=== PATIENT | female | born 1935 | race African-American/Black ===

== ENCOUNTER 2018-02-12 14:16 | Inpatient (IN) | payer MEDICARE, OTHER ==
[~2018-02-12] VITALS: Ht 157.5 cm; Wt 63.5 kg
[2018-02-12] VITALS (9 sets, daily range): BP systolic 77–127; BP diastolic 35–89
[2018-02-12] MEDS ORDERED: VALS40TA4 PO (14:23)
[2018-02-12] MEDS ORDERED: MEMA5TAB7 PO (14:23)
[2018-02-12] MEDS ORDERED: FURO20TA4 PO (14:23)
[2018-02-12] MEDS ORDERED: SODIUM CHLORIDE 0.9% 1,000 ML IV ONE (15:34)
[2018-02-12 16:27] LABS: INR 1.2; PROTHROMBIN TIME 11.7 sec (9.1-11.1)
[2018-02-12 16:28] LABS: BASOPHILS % 0.8 % (0.0-2.0); EOSINOPHILS % 0.1 % (0.0-5.0); HEMATOCRIT. 23.4 % (36.0-48.0); HEMOGLOBIN. 7.9 g/dL (12.0-16.0); LYMPHOCYTES % 8.2 % (20.0-50.0); MEAN CORPUSCULAR HEMOGLOBIN 33.4 pg (28.0-32.0); MEAN CORPUSCULAR VOLUME 99.1 fL (81.0-99.0); MEAN PLATELET VOLUME 10.3 fl (7.4-10.4); MONOCYTES % 2.6 % (2.0-8.0); NEUTROPHILS % 88.3 % (40.0-76.0); RED BLOOD CELL COUNT 2.36 mill/uL (4.2-5.4); RED CELL DISTRIBUTION WIDTH 21.5 % (11.6-14.6)
[2018-02-12 16:29] LABS: CHLORIDE 108 mEq/L (98-107)
[2018-02-12 16:35] LABS: ETHANOL BLOOD < 10 mg/dL
[2018-02-12 16:44] LABS: PLATELET 26 x1000/uL (130-400)
[2018-02-12] MEDS ORDERED: CALCIUM CHLORIDE 1GM/10ML SYR IV ONE (16:45)
[2018-02-12] MEDS ORDERED: ALBUTEROL (0.083%) 2.5MG/3ML NEB HHN ONE (16:45)
[2018-02-12] MEDS ORDERED: SODIUM BICARBONATE 8.4% 1 MEQ/ML 50ML SYR IV ONE (16:45)
[2018-02-12] MEDS ORDERED: DEXTROSE 50% WATER 50ML SYRINGE IV ONE ×2 (16:45→22:36)
[2018-02-12] MEDS ORDERED: INSULIN REGULAR (HUMULIN R) 300UNITS/3ML IV ONE (16:45)
[2018-02-12] MEDS ORDERED: LORAZEPAM 2MG/ML CPJ ONE (17:56)
[2018-02-12] MEDS ORDERED: LORAZEPAM 2MG/ML CPJ IM ONE (18:00)
[2018-02-12 18:19] LABS: CLARITY URINE CLOUDY (CLEAR); COLOR URINE YELLOW (YELLOW); KETONES URINE TRACE (NEGATIVE); LEUKOCYTE ESTERASE URINE 1+ (NEGATIVE); NITRITE URINE NEGATIVE (NEGATIVE); OCCULT BLOOD URINE 1+ (NEGATIVE); PROTEIN URINE 1+ (NEGATIVE); SPECIFIC GRAVITY URINE 1.017 (1.005-1.030); UROBILINOGEN URINE 0.2 E.U./dL (0.2-1.0)
[2018-02-12 18:36] LABS: *AMPHETAMINES SCREEN URINE NEGATIVE (NEGATIVE); *BARBITURATES SCREEN URINE NEGATIVE (NEGATIVE); *BENZODIAZEPINES SCREEN URINE NEGATIVE (NEGATIVE); *COCAINE SCREEN URINE NEGATIVE (NEGATIVE); METHADONE URINE SCREEN NEGATIVE (NEGATIVE); OPIATES URINE SCREEN NEGATIVE (NEGATIVE)
[2018-02-12 18:37] LABS: CANNABINOID URINE SCREEN NEGATIVE (NEGATIVE); PHENCYCLIDINE URINE SCREEN NEGATIVE (NEGATIVE)
[2018-02-12] MEDS ORDERED: PIPERACILLIN/TAZ 3.375G PREMIX 50 ML IV ONE (19:00)
[2018-02-12] MEDS ORDERED: VANCOMYCIN 1 G PREMIX 200 ML IV ONE (19:00)
[2018-02-12] MEDS: DEXTROSE 50% WATER 50ML SYRINGE IV PRN (22:37)
[2018-02-12] MEDS ORDERED: ONDANSETRON HCL 4MG/2ML INJ IV PRN (23:00)
[2018-02-12] MEDS ORDERED: PIPERACILLIN/TAZ 3.375G PREMIX 50 ML IV SCH (23:00)
[2018-02-13] VITALS (107 sets, daily range): BP systolic 59–170; BP diastolic 28–110
[2018-02-13] MEDS ORDERED: DEXTROSE 10% WATER 1,000 ML IV SCH
[2018-02-13] MEDS: DOPAMINE 400MG/250ML PREMIX 250 ML IV PRN ×2 (00:49→14:31)
[2018-02-13] MEDS ORDERED: DEXTROSE 50% WATER 50ML SYRINGE IV PRN (01:15)
[2018-02-13] MEDS: BLOOD SUGAR DIAGNOSTIC STRIP TEST SCH ×8 (01:52→20:00)
[2018-02-13] MEDS ORDERED: VALS160T2 MT (03:09)
[2018-02-13] MEDS ORDERED: OMEP20CA10 MT (03:10)
[2018-02-13] MEDS ORDERED: RIVA1PAT9 TP (03:11)
[2018-02-13] MEDS ORDERED: POTA-79 MT (03:12)
[2018-02-13] MEDS ORDERED: FURO40TA5 MT (03:12)
[2018-02-13] MEDS ORDERED: MEMA10TA2 MT (03:13)
[2018-02-13] MEDS ORDERED: FERR325T6 MT (03:14)
[2018-02-13] MEDS ORDERED: FOLI-43 MT (03:14)
[2018-02-13] MEDS ORDERED: CHOL100053 PO (03:16)
[2018-02-13] MEDS ORDERED: MULT-1146 MT (03:16)
[2018-02-13] MEDS ORDERED: QUET50TA MT (03:17)
[2018-02-13] MEDS ORDERED: POLY17PO3 MT (03:17)
[2018-02-13] MEDS ORDERED: HYDR-3782 MT (03:17)
[2018-02-13] MEDS: PIPERACILLIN/TAZ 2.25G PREMIX 50 ML IV SCH ×4 (05:06→23:12)
[2018-02-13 06:57] LABS: BASOPHILS % 0.2 % (0.0-2.0); EOSINOPHILS % 0.1 % (0.0-5.0); HEMATOCRIT. 22.9 % (36.0-48.0); LYMPHOCYTES % 7.9 % (20.0-50.0); MEAN CORPUSCULAR HEMOGLOBIN 34.1 pg (28.0-32.0); MEAN PLATELET VOLUME 10.1 fl (7.4-10.4); MONOCYTES % 2.6 % (2.0-8.0); NEUTROPHILS % 89.2 % (40.0-76.0); RED BLOOD CELL COUNT 2.33 mill/uL (4.2-5.4); RED CELL DISTRIBUTION WIDTH 21.1 % (11.6-14.6)
[2018-02-13 07:28] LABS: PHOSPHORUS 2.2 mg/dL (2.5-4.9)
[2018-02-13] MEDS ORDERED: LIDOCAINE HCL 1% 20ML VIAL (Pyxis) INJ ONE (07:44)
[2018-02-13] MEDS ORDERED: BLOOD SUGAR DIAGNOSTIC STRIP TEST SCH (07:50)
[2018-02-13 07:59] LABS: PLATELET 34 x1000/uL (130-400)
[2018-02-13] MEDS: PANTOPRAZOLE SODIUM 40 MG/VIAL IV SCH (08:29)
[2018-02-13] MEDS ORDERED: POTASSIUM-SODIUM PHOSPHATE POWDER PACKET PO NR (10:45)
[2018-02-13 11:18] LABS: BG BASE EXCESS -5.8 mmol/L (-2.0-2.0); BG CARBOXYHEMOGLOBIN 0.3 % (0.5-1.5); BG DEOXYHEMOGLOBIN 0.9 % (0.0-5.0); BG FRACTION INSPIRED OXYGEN 28; BG HCO3 ACT 17.9 mmol/L (22.0-26.0); BG METHEMOGLOBIN 0.2 % (0.0-1.5); BG OXYGEN SATURATION 99.1 % (92.0-98.5); BG OXYHEMOGLOBIN 98.6 % (94.0-97.0); BG PCO2 28.3 mmHg (35.0-45.0); BG PH 7.419 (7.350-7.450); BG PO2 165.2 mmHg (75.0-100.0); BG SAMPLE SITE RIGHT BRACHIAL; BG TOTAL HEMOGLOBIN 7.7 g/dL (12.0-18.0); BG VENT MODE NASAL CANNULA
[2018-02-13 12:46] LABS: VITAMIN B12 SERUM > 2000.0 pg/mL (211-911)
[2018-02-13] MEDS: VANCOMYCIN 750 MG PREMIX 150 ML IV SCH (14:31)
[2018-02-13] MEDS ORDERED: DEXT 10% WATER 1,000 ML IV SCH (14:45)
[2018-02-13] MEDS: DEXT 10% WATER 1,000 ML IV SCH (15:00)
[2018-02-13 15:30] LABS: HEPATITIS B SURFACE ANTIGEN NEGATIVE
[2018-02-13 16:00] LABS: HEPATITIS A AB IGM NEGATIVE (NEGATIVE)
[2018-02-14] VITALS (95 sets, daily range): BP systolic 60–162; BP diastolic 34–98
[2018-02-14] MEDS: DEXT 10% WATER 1,000 ML IV SCH (00:37)
[2018-02-14] MEDS: BLOOD SUGAR DIAGNOSTIC STRIP TEST SCH ×7 (04:00→23:58)
[2018-02-14] MEDS: DOPAMINE 400MG/250ML PREMIX 250 ML IV PRN ×3 (04:49→22:43)
[2018-02-14] MEDS: PIPERACILLIN/TAZ 2.25G PREMIX 50 ML IV SCH ×4 (05:49→23:04)
[2018-02-14 07:04] LABS: BASOPHILS % 0.7 % (0.0-2.0); EOSINOPHILS % 0.6 % (0.0-5.0); HEMATOCRIT. 21.7 % (36.0-48.0); HEMOGLOBIN. 7.4 g/dL (12.0-16.0); LYMPHOCYTES % 15.6 % (20.0-50.0); MEAN CORPUSCULAR HEMOGLOBIN 33.6 pg (28.0-32.0); MEAN CORPUSCULAR VOLUME 97.7 fL (81.0-99.0); MEAN PLATELET VOLUME 9.5 fl (7.4-10.4); MONOCYTES % 6.8 % (2.0-8.0); NEUTROPHILS % 76.3 % (40.0-76.0); RED BLOOD CELL COUNT 2.22 mill/uL (4.2-5.4)
[2018-02-14 07:56] LABS: PLATELET 35 x1000/uL (130-400)
[2018-02-14] MEDS: PANTOPRAZOLE SODIUM 40 MG/VIAL IV SCH (08:09)
[2018-02-14 13:01] LABS: FOLIC ACID (FOLATE) SERUM >20 ng/mL ng/mL (>5.38)
[2018-02-14 13:39] LABS: TOTAL IRON BINDING CAPACITY 224 ug/dL (250-450)
[2018-02-14] MEDS: VANCOMYCIN 750 MG PREMIX 150 ML IV SCH (14:08)
[2018-02-14 14:35] LABS: FERRITIN 1686 ng/mL (10-291)
[2018-02-15] VITALS (88 sets, daily range): BP systolic 56–170; BP diastolic 28–112
[2018-02-15] MEDS: BLOOD SUGAR DIAGNOSTIC STRIP TEST SCH ×5 (04:00→20:00)
[2018-02-15] MEDS: DEXTROSE 50% WATER 50ML SYRINGE IV PRN (04:13)
[2018-02-15] MEDS: PIPERACILLIN/TAZ 2.25G PREMIX 50 ML IV SCH ×3 (05:37→17:13)
[2018-02-15 06:12] LABS: BASOPHILS % 0.6 % (0.0-2.0); EOSINOPHILS % 1.1 % (0.0-5.0); HEMOGLOBIN. 7.1 g/dL (12.0-16.0); LYMPHOCYTES % 11.1 % (20.0-50.0); MEAN CORPUSCULAR VOLUME 98.3 fL (81.0-99.0); MEAN PLATELET VOLUME 9.8 fl (7.4-10.4); MONOCYTES % 6.4 % (2.0-8.0); NEUTROPHILS % 80.8 % (40.0-76.0); RED BLOOD CELL COUNT 2.09 mill/uL (4.2-5.4); RED CELL DISTRIBUTION WIDTH 20.6 % (11.6-14.6)
[2018-02-15 06:24] LABS: CHLORIDE 107 mEq/L (98-107)
[2018-02-15 06:47] LABS: HEMATOCRIT. 20.5 % (36.0-48.0)
[2018-02-15] MEDS: PANTOPRAZOLE SODIUM 40 MG/VIAL IV SCH (08:41)
[2018-02-15 10:01] LABS: PLATELET 33 x1000/uL (130-400)
[2018-02-15 10:02] LABS: PLATELET ESTIMATE MARKEDLY DECREASED
[2018-02-15] MEDS: MIDODRINE HCL 5MG TABLET PO SCH ×2 (11:35→21:00)
[2018-02-15] MEDS ORDERED: SODIUM CHLORIDE 0.45% 1,000 ML IV SCH (14:15)
[2018-02-15] MEDS ORDERED: IOHEXOL-300 100 ML BOTTLE ONE ×2 (15:41→20:41)
[2018-02-15] MEDS ORDERED: LEVETIRACETAM 500 MG in SODIUM CHLORIDE 0.9% 100 ML IV SCH (16:00)
[2018-02-15] MEDS: METHYLPREDNISOLONE SOD SUCC 40 MG/ML VIAL IV SCH ×2 (16:05→21:00)
[2018-02-15] MEDS: DOPAMINE 400MG/250ML PREMIX 250 ML IV PRN (16:05)
[2018-02-15] MEDS: VANCOMYCIN 750 MG PREMIX 150 ML IV SCH (16:05)
[2018-02-15] MEDS: DOCUSATE SODIUM SUGAR FREE 100MG/10ML UDC NG SCH (16:07)
[2018-02-15] MEDS: DEXT 10% WATER 1,000 ML IV SCH (17:13)
[2018-02-15] MEDS: LEVETIRACETAM 500 MG in SODIUM CHLORIDE 0.9% 100 ML IV SCH (18:24)
[2018-02-15 18:56] LABS: D-DIMER 0.33 mg/L FEU (<0.50); INR 1.1; PARTIAL THROMBOPLASTIN TIME 28.5 sec (23.4-31.0); PROTHROMBIN TIME 11.2 sec (9.1-11.1)
[2018-02-15 19:10] LABS: T4 FREE 0.8 ng/dL (0.76-1.46)
[2018-02-16] VITALS (82 sets, daily range): BP systolic 93–196; BP diastolic 34–151
[2018-02-16] MEDS: PIPERACILLIN/TAZ 2.25G PREMIX 50 ML IV SCH ×5 (00:58→23:38)
[2018-02-16] MEDS: BLOOD SUGAR DIAGNOSTIC STRIP TEST SCH ×7 (00:59→23:44)
[2018-02-16] MEDS: METHYLPREDNISOLONE SOD SUCC 40 MG/ML VIAL IV SCH ×3 (05:46→21:26)
[2018-02-16] MEDS: DEXT 10% WATER 1,000 ML IV SCH (05:47)
[2018-02-16] MEDS: MIDODRINE HCL 5MG TABLET PO SCH ×3 (06:00→21:26)
[2018-02-16 06:52] LABS: CHLORIDE 102 mEq/L (98-107)
[2018-02-16 07:10] LABS: HEMATOCRIT 30.2 % (36.0-48.0); HEMOGLOBIN 10.5 g/dL (12.0-16.0); MEAN CORPUSCULAR HEMOGLOBIN 33.1 pg (28.0-32.0); RED BLOOD CELL COUNT 3.17 mill/uL (4.2-5.4); RED CELL DISTRIBUTION WIDTH 19.7 % (11.6-14.6)
[2018-02-16 07:14] LABS: HAPTOGLOBIN <31.0 mg/dL (30-200)
[2018-02-16 07:22] LABS: PLATELET 42 x1000/uL (130-400)
[2018-02-16] MEDS: DOCUSATE SODIUM SUGAR FREE 100MG/10ML UDC NG SCH ×2 (09:54→18:15)
[2018-02-16] MEDS: LEVETIRACETAM 500 MG in SODIUM CHLORIDE 0.9% 100 ML IV SCH ×2 (09:55→21:26)
[2018-02-16] MEDS: PANTOPRAZOLE SODIUM 40 MG/VIAL IV SCH (09:55)
[2018-02-16] MEDS: DOPAMINE 400MG/250ML PREMIX 250 ML IV PRN (15:05)
[2018-02-16] MEDS: LEVOTHYROXINE SODIUM 25MCG TABLET PO SCH (15:06)
[2018-02-16] MEDS: VANCOMYCIN 750 MG PREMIX 150 ML IV SCH (15:06)
[2018-02-17] VITALS (86 sets, daily range): BP systolic 123–179; BP diastolic 37–121
[2018-02-17] MEDS: BLOOD SUGAR DIAGNOSTIC STRIP TEST SCH ×5 (04:00→20:14)
[2018-02-17 04:13] LABS: HIV SCREEN 4G Non Reactive (Non Reactive)
[2018-02-17] MEDS: PIPERACILLIN/TAZ 2.25G PREMIX 50 ML IV SCH ×3 (05:50→18:38)
[2018-02-17] MEDS: METHYLPREDNISOLONE SOD SUCC 40 MG/ML VIAL IV SCH ×3 (05:50→21:43)
[2018-02-17 06:09] LABS: HEMATOCRIT 29.1 % (36.0-48.0); HEMOGLOBIN 10.1 g/dL (12.0-16.0); MEAN CORPUSCULAR HEMOGLOBIN 32.5 pg (28.0-32.0); MEAN CORPUSCULAR VOLUME 94.2 fL (81.0-99.0); PLATELET 59 x1000/uL (130-400); RED CELL DISTRIBUTION WIDTH 20.1 % (11.6-14.6)
[2018-02-17 06:14] LABS: CHLORIDE 107 mEq/L (98-107)
[2018-02-17 07:18] LABS: IMMUNOGLOBULIN A 452 mg/dL (64-422); IMMUNOGLOBULIN G 991 mg/dL (700-1600); IMMUNOGLOBULIN M 110 mg/dL (26-217)
[2018-02-17] MEDS: MIDODRINE HCL 5MG TABLET PO SCH ×3 (08:30→21:43)
[2018-02-17] MEDS: LEVETIRACETAM 500 MG in SODIUM CHLORIDE 0.9% 100 ML IV SCH ×2 (09:35→21:43)
[2018-02-17] MEDS: PANTOPRAZOLE SODIUM 40 MG/VIAL IV SCH (09:35)
[2018-02-17] MEDS: LEVOTHYROXINE SODIUM 25MCG TABLET PO SCH (09:35)
[2018-02-17] MEDS: DOPAMINE 400MG/250ML PREMIX 250 ML IV PRN (09:35)
[2018-02-17] MEDS: DOCUSATE SODIUM SUGAR FREE 100MG/10ML UDC NG SCH ×2 (09:36→18:38)
[2018-02-17] MEDS ORDERED: LORAZEPAM 2MG/ML CPJ IV ONE (12:00)
[2018-02-17] MEDS ORDERED: LIDOCAINE HCL/PF 1% 2ML VIAL INFIL ONE (12:00)
[2018-02-17] MEDS ORDERED: LIDOCAINE HCL/PF 1% 10 MG/ML 5ML VIAL IJ ONE (12:10)
[2018-02-17] MEDS: VANCOMYCIN 750 MG PREMIX 150 ML IV SCH (17:14)
[2018-02-18] VITALS (94 sets, daily range): BP systolic 101–182; BP diastolic 57–103
[2018-02-18] MEDS: PIPERACILLIN/TAZ 2.25G PREMIX 50 ML IV SCH ×5 (00:31→23:36)
[2018-02-18] MEDS: BLOOD SUGAR DIAGNOSTIC STRIP TEST SCH ×7 (00:31→23:36)
[2018-02-18 05:03] LABS: HEMATOCRIT 27.2 % (36.0-48.0); HEMOGLOBIN 9.3 g/dL (12.0-16.0); MEAN CORPUSCULAR HEMOGLOBIN 32.5 pg (28.0-32.0); MEAN CORPUSCULAR VOLUME 95.8 fL (81.0-99.0); PLATELET 80 x1000/uL (130-400); RED BLOOD CELL COUNT 2.84 mill/uL (4.2-5.4)
[2018-02-18] MEDS: METHYLPREDNISOLONE SOD SUCC 40 MG/ML VIAL IV SCH ×3 (05:06→21:30)
[2018-02-18] MEDS: MIDODRINE HCL 5MG TABLET PO SCH ×3 (05:06→21:30)
[2018-02-18 05:09] LABS: CHLORIDE 107 mEq/L (98-107)
[2018-02-18] MEDS: DOCUSATE SODIUM SUGAR FREE 100MG/10ML UDC NG SCH ×2 (09:14→17:00)
[2018-02-18] MEDS: LEVETIRACETAM 500 MG in SODIUM CHLORIDE 0.9% 100 ML IV SCH ×2 (09:14→21:30)
[2018-02-18] MEDS: PANTOPRAZOLE SODIUM 40 MG/VIAL IV SCH (09:14)
[2018-02-18] MEDS: LEVOTHYROXINE SODIUM 25MCG TABLET PO SCH (09:15)
[2018-02-19] VITALS (36 sets, daily range): BP systolic 127–169; BP diastolic 61–97
[2018-02-19] MEDS: BLOOD SUGAR DIAGNOSTIC STRIP TEST SCH ×4 (04:00→16:54)
[2018-02-19 04:46] LABS: HEMOGLOBIN 9.7 g/dL (12.0-16.0); MEAN CORPUSCULAR VOLUME 95.1 fL (81.0-99.0); PLATELET 101 x1000/uL (130-400); RED BLOOD CELL COUNT 2.95 mill/uL (4.2-5.4); RED CELL DISTRIBUTION WIDTH 19.7 % (11.6-14.6)
[2018-02-19 04:53] LABS: CHLORIDE 106 mEq/L (98-107)
[2018-02-19] MEDS: MIDODRINE HCL 5MG TABLET PO SCH ×3 (05:12→23:03)
[2018-02-19] MEDS: METHYLPREDNISOLONE SOD SUCC 40 MG/ML VIAL IV SCH ×2 (05:12→13:56)
[2018-02-19] MEDS: PIPERACILLIN/TAZ 2.25G PREMIX 50 ML IV SCH ×3 (05:12→17:18)
[2018-02-19] MEDS: DOPAMINE 400MG/250ML PREMIX 250 ML IV PRN ×2 (06:46→17:28)
[2018-02-19] MEDS: LEVOTHYROXINE SODIUM 25MCG TABLET PO SCH (09:09)
[2018-02-19] MEDS: DOCUSATE SODIUM SUGAR FREE 100MG/10ML UDC NG SCH ×2 (09:09→17:18)
[2018-02-19] MEDS: PANTOPRAZOLE SODIUM 40 MG/VIAL IV SCH (09:10)
[2018-02-19] MEDS: LEVETIRACETAM 500 MG in SODIUM CHLORIDE 0.9% 100 ML IV SCH ×2 (11:32→23:01)
[2018-02-19] MEDS ORDERED: POTASSIUM CHLORIDE 20MEQ/PACKET PO SCH (12:30)
[2018-02-20] VITALS (64 sets, daily range): BP systolic 104–172; BP diastolic 59–120
[2018-02-20] MEDS: BLOOD SUGAR DIAGNOSTIC STRIP TEST SCH ×4 (00:36→17:31)
[2018-02-20] MEDS: PIPERACILLIN/TAZ 2.25G PREMIX 50 ML IV SCH ×2 (00:38→07:00)
[2018-02-20 05:47] LABS: HEMOGLOBIN 8.2 g/dL (12.0-16.0); MEAN CORPUSCULAR HEMOGLOBIN 33.2 pg (28.0-32.0); MEAN CORPUSCULAR VOLUME 96.8 fL (81.0-99.0); PLATELET 97 x1000/uL (130-400); RED BLOOD CELL COUNT 2.48 mill/uL (4.2-5.4); RED CELL DISTRIBUTION WIDTH 20.2 % (11.6-14.6)
[2018-02-20 06:14] LABS: CHLORIDE 106 mEq/L (98-107)
[2018-02-20] MEDS: LEVOTHYROXINE SODIUM 25MCG TABLET PO SCH (06:56)
[2018-02-20] MEDS: MIDODRINE HCL 5MG TABLET PO SCH ×3 (06:56→21:10)
[2018-02-20] MEDS: DOPAMINE 400MG/250ML PREMIX 250 ML IV PRN (07:01)
[2018-02-20] MEDS: DOCUSATE SODIUM SUGAR FREE 100MG/10ML UDC NG SCH ×2 (09:00→17:00)
[2018-02-20] MEDS: METHYLPREDNISOLONE SOD SUCC 40 MG/ML VIAL IV SCH ×2 (09:05→17:31)
[2018-02-20] MEDS: LEVETIRACETAM 500 MG in SODIUM CHLORIDE 0.9% 100 ML IV SCH ×2 (09:06→21:09)
[2018-02-20] MEDS: PANTOPRAZOLE SODIUM 40 MG/VIAL IV SCH (09:06)
[2018-02-20] MEDS ORDERED: POTASSIUM CHLORIDE 20MEQ/PACKET PO SCH (10:45)
[2018-02-20] MEDS: DOPAMINE 400MG/250ML PREMIX 250 ML IV SCH ×2 (22:15→22:58)
[2018-02-21] VITALS (12 sets, daily range): BP systolic 134–159; BP diastolic 64–89
[2018-02-21] MEDS: BLOOD SUGAR DIAGNOSTIC STRIP TEST SCH ×4 (00:49→16:45)
[2018-02-21] MEDS: MIDODRINE HCL 5MG TABLET PO SCH ×3 (06:00→21:53)
[2018-02-21] MEDS: LEVOTHYROXINE SODIUM 25MCG TABLET PO SCH (06:20)
[2018-02-21 06:44] LABS: HEMATOCRIT 24.5 % (36.0-48.0); HEMOGLOBIN 8.4 g/dL (12.0-16.0); MEAN CORPUSCULAR HEMOGLOBIN 33.2 pg (28.0-32.0); MEAN CORPUSCULAR VOLUME 96.3 fL (81.0-99.0); PLATELET 119 x1000/uL (130-400); RED BLOOD CELL COUNT 2.54 mill/uL (4.2-5.4); RED CELL DISTRIBUTION WIDTH 19.8 % (11.6-14.6)
[2018-02-21 07:32] LABS: CHLORIDE 105 mEq/L (98-107)
[2018-02-21] MEDS: LEVETIRACETAM 500 MG in SODIUM CHLORIDE 0.9% 100 ML IV SCH ×2 (09:05→20:58)
[2018-02-21] MEDS: DOCUSATE SODIUM SUGAR FREE 100MG/10ML UDC NG SCH ×2 (09:05→16:48)
[2018-02-21] MEDS: METHYLPREDNISOLONE SOD SUCC 40 MG/ML VIAL IV SCH ×2 (09:05→16:48)
[2018-02-21] MEDS: PANTOPRAZOLE SODIUM 40 MG/VIAL IV SCH (09:05)
[2018-02-21] MEDS: DEXTROSE 50% WATER 50ML SYRINGE IV PRN (13:09)
[2018-02-21] MEDS: DEXT 5%/0.45% NACL 1000ML 1,000 ML IV SCH (14:30)
[2018-02-21] MEDS: DOPAMINE 400MG/250ML PREMIX 250 ML IV SCH (18:43)
[2018-02-22] VITALS (11 sets, daily range): BP systolic 106–154; BP diastolic 56–93
[2018-02-22] MEDS: BLOOD SUGAR DIAGNOSTIC STRIP TEST SCH ×4 (00:37→18:00)
[2018-02-22] MEDS: BACITRACIN 15GM TUBE TOP SCH (04:23)
[2018-02-22] MEDS: DEXT 5%/0.45% NACL 1000ML 1,000 ML IV SCH ×2 (04:24→16:57)
[2018-02-22] MEDS: MIDODRINE HCL 5MG TABLET PO SCH ×4 (06:00→21:02)
[2018-02-22 06:49] LABS: BASOPHILS % 0.4 % (0.0-2.0); EOSINOPHILS % 1.1 % (0.0-5.0); HEMATOCRIT. 25.8 % (36.0-48.0); HEMOGLOBIN. 8.9 g/dL (12.0-16.0); MEAN CORPUSCULAR HEMOGLOBIN 33.3 pg (28.0-32.0); MEAN CORPUSCULAR VOLUME 96.6 fL (81.0-99.0); MEAN PLATELET VOLUME 9.3 fl (7.4-10.4); MONOCYTES % 7.1 % (2.0-8.0); NEUTROPHILS % 78.4 % (40.0-76.0); PLATELET 139 x1000/uL (130-400); RED BLOOD CELL COUNT 2.67 mill/uL (4.2-5.4)
[2018-02-22] MEDS: LEVOTHYROXINE SODIUM 25MCG TABLET PO SCH (06:49)
[2018-02-22 07:11] LABS: CHLORIDE 105 mEq/L (98-107)
[2018-02-22] MEDS: PANTOPRAZOLE SODIUM 40 MG/VIAL IV SCH (08:26)
[2018-02-22] MEDS: METHYLPREDNISOLONE SOD SUCC 40 MG/ML VIAL IV SCH ×2 (08:26→16:46)
[2018-02-22] MEDS: DOCUSATE SODIUM SUGAR FREE 100MG/10ML UDC NG SCH ×2 (08:28→16:46)
[2018-02-22] MEDS: LEVETIRACETAM 500 MG in SODIUM CHLORIDE 0.9% 100 ML IV SCH ×2 (08:42→21:02)
[2018-02-22] MEDS ORDERED: METOCLOPRAMIDE HCL 10MG/2ML VIAL ONE (14:21)
[2018-02-22] MEDS ORDERED: METOCLOPRAMIDE HCL 5MG TABLET PO PRN (14:30)
[2018-02-22] MEDS: METOCLOPRAMIDE HCL 10MG/2ML VIAL IV PRN (14:44)
[2018-02-22] MEDS ORDERED: METOCLOPRAMIDE HCL 10MG/2ML VIAL IV SCH (18:00)
[2018-02-22] MEDS: THEOPHYLLINE ANHYDROUS 80 MG/15 ML 120ML PO SCH (18:14)
[2018-02-23] VITALS (12 sets, daily range): BP systolic 93–152; BP diastolic 60–97
[2018-02-23] MEDS: BLOOD SUGAR DIAGNOSTIC STRIP TEST SCH ×4 (00:19→17:18)
[2018-02-23] MEDS: DOPAMINE 400MG/250ML PREMIX 250 ML IV SCH (00:21)
[2018-02-23] MEDS: THEOPHYLLINE ANHYDROUS 80 MG/15 ML 120ML PO SCH ×4 (00:22→17:18)
[2018-02-23] MEDS: MIDODRINE HCL 5MG TABLET PO SCH ×3 (05:54→22:00)
[2018-02-23] MEDS: DEXT 5%/0.45% NACL 1000ML 1,000 ML IV SCH ×2 (05:55→16:30)
[2018-02-23] MEDS: LEVOTHYROXINE SODIUM 25MCG TABLET PO SCH (05:55)
[2018-02-23] MEDS: PANTOPRAZOLE SODIUM 40 MG/VIAL IV SCH (08:23)
[2018-02-23] MEDS: DOCUSATE SODIUM SUGAR FREE 100MG/10ML UDC NG SCH ×2 (08:23→16:30)
[2018-02-23] MEDS: BACITRACIN 15GM TUBE TOP SCH (08:23)
[2018-02-23] MEDS: METHYLPREDNISOLONE SOD SUCC 40 MG/ML VIAL IV SCH ×2 (08:23→16:30)
[2018-02-23] MEDS: LEVETIRACETAM 500 MG in SODIUM CHLORIDE 0.9% 100 ML IV SCH ×2 (08:39→21:22)
[2018-02-24] VITALS (12 sets, daily range): BP systolic 103–158; BP diastolic 57–89
[2018-02-24] MEDS: BLOOD SUGAR DIAGNOSTIC STRIP TEST SCH ×5 (00:30→23:30)
[2018-02-24] MEDS: THEOPHYLLINE ANHYDROUS 80 MG/15 ML 120ML PO SCH ×5 (01:45→23:29)
[2018-02-24] MEDS: DEXT 5%/0.45% NACL 1000ML 1,000 ML IV SCH ×3 (05:00→18:49)
[2018-02-24] MEDS: MIDODRINE HCL 5MG TABLET PO SCH ×3 (06:17→21:31)
[2018-02-24] MEDS: LEVOTHYROXINE SODIUM 25MCG TABLET PO SCH (06:17)
[2018-02-24] MEDS: DOPAMINE 400MG/250ML PREMIX 250 ML IV SCH ×2 (06:27→22:15)
[2018-02-24] MEDS: METHYLPREDNISOLONE SOD SUCC 40 MG/ML VIAL IV SCH (08:28)
[2018-02-24] MEDS: DOCUSATE SODIUM SUGAR FREE 100MG/10ML UDC NG SCH ×2 (08:28→17:05)
[2018-02-24] MEDS: PANTOPRAZOLE SODIUM 40 MG/VIAL IV SCH (08:28)
[2018-02-24] MEDS: LEVETIRACETAM 500 MG in SODIUM CHLORIDE 0.9% 100 ML IV SCH ×2 (08:29→21:30)
[2018-02-24] MEDS: BACITRACIN 15GM TUBE TOP SCH (09:24)
[2018-02-24] MEDS ORDERED: LACTULOSE 20G/30ML UDC PO PRN (17:45)
[2018-02-24] MEDS: LACTULOSE 20G/30ML UDC PO NR ×2 (18:09→21:30)
[2018-02-25] VITALS (19 sets, daily range): BP systolic 90–140; BP diastolic 43–88
[2018-02-25] MEDS: LEVOTHYROXINE SODIUM 25MCG TABLET PO SCH (06:12)
[2018-02-25] MEDS: MIDODRINE HCL 5MG TABLET PO SCH ×3 (06:12→21:19)
[2018-02-25] MEDS: THEOPHYLLINE ANHYDROUS 80 MG/15 ML 120ML PO SCH ×4 (06:17→23:54)
[2018-02-25] MEDS: BLOOD SUGAR DIAGNOSTIC STRIP TEST SCH ×4 (06:17→23:54)
[2018-02-25 07:37] LABS: MEAN CORPUSCULAR HEMOGLOBIN 33.7 pg (28.0-32.0); MEAN CORPUSCULAR VOLUME 99.5 fL (81.0-99.0); PLATELET 200 x1000/uL (130-400); RED BLOOD CELL COUNT 2.06 mill/uL (4.2-5.4); RED CELL DISTRIBUTION WIDTH 21.4 % (11.6-14.6)
[2018-02-25 07:39] LABS: CHLORIDE 106 mEq/L (98-107)
[2018-02-25 07:56] LABS: HEMATOCRIT 20.5 % (36.0-48.0); HEMOGLOBIN 6.9 g/dL (12.0-16.0)
[2018-02-25] MEDS: DOCUSATE SODIUM SUGAR FREE 100MG/10ML UDC NG SCH ×2 (09:41→17:26)
[2018-02-25] MEDS: PANTOPRAZOLE SODIUM 40 MG/VIAL IV SCH (09:42)
[2018-02-25] MEDS: LEVETIRACETAM 500 MG in SODIUM CHLORIDE 0.9% 100 ML IV SCH ×2 (09:42→21:19)
[2018-02-25] MEDS: BACITRACIN 15GM TUBE TOP SCH (09:42)
[2018-02-25] MEDS: METHYLPREDNISOLONE SOD SUCC 40 MG/ML VIAL IV SCH (09:42)
[2018-02-25] MEDS ORDERED: POTASSIUM CHLORIDE 20MEQ TABLET SR PO SCH ×2 (10:00→14:00)
[2018-02-25] MEDS: METOCLOPRAMIDE HCL 10MG/2ML VIAL IV PRN (11:04)
[2018-02-25] MEDS: DEXT 5%/0.45% NACL 1000ML 1,000 ML IV SCH (19:52)
[2018-02-25] MEDS: DOPAMINE 400MG/250ML PREMIX 250 ML IV SCH (21:20)
[2018-02-25] MEDS: ACETAMINOPHEN 650MG/20.3ML UDC NG PRN (22:02)
[2018-02-26] VITALS (13 sets, daily range): BP systolic 100–148; BP diastolic 59–90
[2018-02-26] MEDS: LEVOTHYROXINE SODIUM 25MCG TABLET PO SCH (06:12)
[2018-02-26] MEDS: MIDODRINE HCL 5MG TABLET PO SCH ×3 (06:13→21:04)
[2018-02-26] MEDS: BLOOD SUGAR DIAGNOSTIC STRIP TEST SCH ×4 (06:15→23:48)
[2018-02-26] MEDS: THEOPHYLLINE ANHYDROUS 80 MG/15 ML 120ML PO SCH ×4 (06:15→23:48)
[2018-02-26 07:10] LABS: EOSINOPHILS % 0.5 % (0.0-5.0); HEMATOCRIT. 28.3 % (36.0-48.0); HEMOGLOBIN. 9.8 g/dL (12.0-16.0); LYMPHOCYTES % 7.2 % (20.0-50.0); MEAN CORPUSCULAR HEMOGLOBIN 32.5 pg (28.0-32.0); MEAN CORPUSCULAR VOLUME 93.4 fL (81.0-99.0); MEAN PLATELET VOLUME 9.9 fl (7.4-10.4); NEUTROPHILS % 86.3 % (40.0-76.0); PLATELET 188 x1000/uL (130-400); RED BLOOD CELL COUNT 3.03 mill/uL (4.2-5.4); RED CELL DISTRIBUTION WIDTH 20.3 % (11.6-14.6)
[2018-02-26 07:12] LABS: CHLORIDE 106 mEq/L (98-107)
[2018-02-26] MEDS: DOCUSATE SODIUM SUGAR FREE 100MG/10ML UDC NG SCH ×2 (09:25→17:19)
[2018-02-26] MEDS: LEVETIRACETAM 500 MG in SODIUM CHLORIDE 0.9% 100 ML IV SCH ×2 (09:26→20:54)
[2018-02-26] MEDS: PANTOPRAZOLE SODIUM 40 MG/VIAL IV SCH (09:26)
[2018-02-26] MEDS: BACITRACIN 15GM TUBE TOP SCH (09:26)
[2018-02-26] MEDS: METHYLPREDNISOLONE SOD SUCC 40 MG/ML VIAL IV SCH (09:26)
[2018-02-26] MEDS ORDERED: POTASSIUM CHLORIDE 20MEQ TABLET SR PO NR (17:10)
[2018-02-26] MEDS: DEXT 5%/0.45% NACL 1000ML 1,000 ML IV SCH (20:54)
[2018-02-26] MEDS: DOPAMINE 400MG/250ML PREMIX 250 ML IV SCH (21:20)
[2018-02-27] VITALS (12 sets, daily range): BP systolic 106–148; BP diastolic 55–87
[2018-02-27] MEDS: METOCLOPRAMIDE HCL 10MG/2ML VIAL IV PRN (00:49)
[2018-02-27] MEDS: MIDODRINE HCL 5MG TABLET PO SCH ×3 (05:07→21:30)
[2018-02-27] MEDS: LEVOTHYROXINE SODIUM 25MCG TABLET PO SCH (05:07)
[2018-02-27] MEDS: BLOOD SUGAR DIAGNOSTIC STRIP TEST SCH ×3 (05:08→17:48)
[2018-02-27] MEDS: THEOPHYLLINE ANHYDROUS 80 MG/15 ML 120ML PO SCH ×3 (05:08→17:52)
[2018-02-27 05:56] LABS: CHLORIDE 110 mEq/L (98-107)
[2018-02-27] MEDS: PANTOPRAZOLE SODIUM 40 MG/VIAL IV SCH (08:58)
[2018-02-27] MEDS: METHYLPREDNISOLONE SOD SUCC 40 MG/ML VIAL IV SCH (08:58)
[2018-02-27] MEDS: DOCUSATE SODIUM SUGAR FREE 100MG/10ML UDC NG SCH ×2 (08:58→17:52)
[2018-02-27] MEDS: LEVETIRACETAM 500 MG in SODIUM CHLORIDE 0.9% 100 ML IV SCH ×2 (08:59→21:31)
[2018-02-27] MEDS: BACITRACIN 15GM TUBE TOP SCH (08:59)
[2018-02-27] MEDS: ACETAMINOPHEN 650MG/20.3ML UDC NG PRN (09:29)
[2018-02-27] MEDS ORDERED: DEXT 5%/0.45% NACL 1000ML 1,000 ML IV SCH (20:45)
[2018-02-27] MEDS: DOPAMINE 400MG/250ML PREMIX 250 ML IV SCH (21:24)
[2018-02-28] VITALS (12 sets, daily range): BP systolic 83–154; BP diastolic 49–91
[2018-02-28] MEDS: BLOOD SUGAR DIAGNOSTIC STRIP TEST SCH ×4 (00:43→18:07)
[2018-02-28] MEDS: THEOPHYLLINE ANHYDROUS 80 MG/15 ML 120ML PO SCH ×4 (00:44→18:06)
[2018-02-28 05:53] LABS: CHLORIDE 111 mEq/L (98-107)
[2018-02-28 06:02] LABS: HEMATOCRIT 31.4 % (36.0-48.0); HEMOGLOBIN 10.6 g/dL (12.0-16.0); MEAN CORPUSCULAR HEMOGLOBIN 32.4 pg (28.0-32.0); MEAN CORPUSCULAR VOLUME 96.1 fL (81.0-99.0); PLATELET 252 x1000/uL (130-400); RED BLOOD CELL COUNT 3.27 mill/uL (4.2-5.4); RED CELL DISTRIBUTION WIDTH 20.9 % (11.6-14.6)
[2018-02-28] MEDS: LEVOTHYROXINE SODIUM 25MCG TABLET PO SCH (07:01)
[2018-02-28] MEDS: MIDODRINE HCL 5MG TABLET PO SCH ×3 (07:01→21:56)
[2018-02-28] MEDS: METHYLPREDNISOLONE SOD SUCC 40 MG/ML VIAL IV SCH (09:17)
[2018-02-28] MEDS: PANTOPRAZOLE SODIUM 40 MG/VIAL IV SCH (09:17)
[2018-02-28] MEDS: LEVETIRACETAM 500 MG in SODIUM CHLORIDE 0.9% 100 ML IV SCH ×2 (09:17→21:53)
[2018-02-28] MEDS: DOCUSATE SODIUM SUGAR FREE 100MG/10ML UDC NG SCH ×2 (09:18→18:06)
[2018-02-28] MEDS: BACITRACIN 15GM TUBE TOP SCH (09:46)
[2018-02-28] MEDS: METOCLOPRAMIDE HCL 10MG/2ML VIAL IV PRN (12:30)
[2018-02-28] MEDS: DOPAMINE 400MG/250ML PREMIX 250 ML IV SCH (22:15)
[2018-03-01] VITALS (10 sets, daily range): BP systolic 103–132; BP diastolic 59–91
[2018-03-01] MEDS: BLOOD SUGAR DIAGNOSTIC STRIP TEST SCH ×4 (00:42→18:00)
[2018-03-01 06:01] LABS: CHLORIDE 109 mEq/L (98-107)
[2018-03-01 06:08] LABS: HEMATOCRIT 29.1 % (36.0-48.0); HEMOGLOBIN 9.7 g/dL (12.0-16.0); MEAN CORPUSCULAR HEMOGLOBIN 32.6 pg (28.0-32.0); MEAN CORPUSCULAR VOLUME 97.7 fL (81.0-99.0); PLATELET 225 x1000/uL (130-400); RED BLOOD CELL COUNT 2.98 mill/uL (4.2-5.4); RED CELL DISTRIBUTION WIDTH 20.2 % (11.6-14.6)
[2018-03-01] MEDS: MIDODRINE HCL 5MG TABLET PO SCH ×2 (06:21→14:00)
[2018-03-01] MEDS: LEVOTHYROXINE SODIUM 25MCG TABLET PO SCH (06:21)
[2018-03-01] MEDS: THEOPHYLLINE ANHYDROUS 80 MG/15 ML 120ML PO SCH ×4 (06:22→18:00)
[2018-03-01] MEDS: LEVETIRACETAM 500 MG in SODIUM CHLORIDE 0.9% 100 ML IV SCH (09:05)
[2018-03-01] MEDS: PANTOPRAZOLE SODIUM 40 MG/VIAL IV SCH (09:05)
[2018-03-01] MEDS: BACITRACIN 15GM TUBE TOP SCH (09:06)
[2018-03-01] MEDS: DOCUSATE SODIUM SUGAR FREE 100MG/10ML UDC NG SCH ×2 (10:16→17:00)
== END 2018-03-01 18:34 | disposition hospice, home (50) | DRG 871 ==
LOC: ER 14:48 → 3WST 19:16 → EDBEDREQ 19:26 → EDBEDREQTM 19:26 → ENRESERV 20:37 → CVICU 23:15 → 3WST 02-20 23:56
PROVIDERS: ADMIT Internal Medicine; ATTEND Internal Medicine
PROC: 07DQ3ZX Extraction of Sternum Bone Marrow, Percutaneous Approach, Diagnostic (ICD-10-PCS; principal; 2018-02-13)
PROC: 05HY33Z Insertion of Infusion Device into Upper Vein, Percutaneous Approach (ICD-10-PCS; 2018-02-13)
PROC: B54MZZA Ultrasonography of Right Upper Extremity Veins, Guidance (ICD-10-PCS; 2018-02-13)
PROC: 30233N1 Transfusion of Nonautologous Red Blood Cells into Peripheral Vein, Percutaneous Approach (ICD-10-PCS; 2018-02-15)
DX: A41.9 Sepsis, unspecified organism (principal); G93.41 Metabolic encephalopathy; I63.9 Cerebral infarction, unspecified; N39.0 Urinary tract infection, site not specified; D61.818 Other pancytopenia; R57.9 Shock, unspecified; I42.9 Cardiomyopathy, unspecified; E44.0 Moderate protein-calorie malnutrition; D68.59 Other primary thrombophilia; D69.3 Immune thrombocytopenic purpura; G91.9 Hydrocephalus, unspecified; I48.1 Persistent atrial fibrillation; J98.11 Atelectasis; J44.0 Chronic obstructive pulmonary disease with (acute) lower respiratory infection; I11.0 Hypertensive heart disease with heart failure; I50.9 Heart failure, unspecified; E11.9 Type 2 diabetes mellitus without complications; R62.7 Adult failure to thrive; Z96.652 Presence of left artificial knee joint; Z90.710 Acquired absence of both cervix and uterus; E03.9 Hypothyroidism, unspecified; E11.649 Type 2 diabetes mellitus with hypoglycemia without coma; E87.6 Hypokalemia; E87.8 Other disorders of electrolyte and fluid balance, not elsewhere classified; G30.9 Alzheimer's disease, unspecified; F02.80 Dementia in other diseases classified elsewhere, unspecified severity, without behavioral disturbance, psychotic disturbance, mood disturbance, and anxiety; G40.909 Epilepsy, unspecified, not intractable, without status epilepticus; G93.89 Other specified disorders of brain; I27.20 Pulmonary hypertension, unspecified; K83.8 Other specified diseases of biliary tract; Z51.5 Encounter for palliative care; E87.5 Hyperkalemia; L89.159 Pressure ulcer of sacral region, unspecified stage; L89.029 Pressure ulcer of left elbow, unspecified stage; S41.111A Laceration without foreign body of right upper arm, initial encounter; X58.XXXA Exposure to other specified factors, initial encounter; R13.10 Dysphagia, unspecified; Z66 Do not resuscitate; Z88.2 Allergy status to sulfonamides; Z99.3 Dependence on wheelchair; Z79.899 Other long term (current) drug therapy; Z88.5 Allergy status to narcotic agent; Z91.041 Radiographic dye allergy status; Z68.25 Body mass index [BMI] 25.0-25.9, adult; Z90.49 Acquired absence of other specified parts of digestive tract; Y93.89 Activity, other specified; Y92.89 Other specified places as the place of occurrence of the external cause; Y99.8 Other external cause status
CPT/HCPCS: 36415; 36569; 36600; 38220; 70551; 71045; 71270; 74018; 74178; 76705; 76937; 80048; 80061; 80202; 80305; 82140; 82375; 82533; 82607; 82728; 82746; 82784; 82805; 82962; 83010; 83540; 83550; 83605; 83615; 83735; 84100; 84134; 84145; 84439; 84443; 84481; 84484; 85027; 85044; 85060; 85097; 85362; 85379; 85384; 86038; 86334; 86705; 86709; 86803; 86850; 86900; 86920; 87340; 87389; 87804; 88313; 93005; 93306; 93970; 96365; 96367; 96372; 96375; 99285; A6261; C1725; C1769; C9113; G0482; J1265; J1815; J1953; J2060; J2405; J2543; J2765; J2920; J3370; J3490; J7030; J7040; J7050; P9016; Q9967